=== PATIENT | male | born 1950 | race African-American/Black ===

== ENCOUNTER 2016-09-30 01:02 | Emergency (ER) | payer MEDICARE, SELFPAY, OTHER ==
[~2016-09-30] VITALS: Ht 182.9 cm; Wt 113.4 kg
== END 2016-09-30 04:49 | disposition home or self-care (01) ==
LOC: CED 01:02
DX: T78.3XXA Angioneurotic edema, initial encounter (principal); J45.909 Unspecified asthma, uncomplicated; Z91.030 Bee allergy status
CPT/HCPCS: 96374; 96375; 99283; J1200; J2930